=== PATIENT | male | born 1960 | race Caucasian/White ===

== ENCOUNTER 2020-05-31 09:50 | Emergency (ER) | payer BC ==
[2020-05-31] MEDS ORDERED: Bacitracin Oint 1 GM U/D Packet TOP ONE (11:23)
--- NOTE | 2020-05-31 11:34 | EDM.PDOC ---
ED HPI GENERAL MEDICAL PROBLEM - General Chief Complaint: Skin Complaint Stated Complaint: FISHOOK IN LEFT HAND Time Seen by Provider: 05/31/20 11:21 Source of Information: Reports: Patient, RN Notes Reviewed History Limitations: Reports: No Limitations - History of Present Illness INITIAL COMMENTS - FREE TEXT/NARRATIVE: 59-year-old gentleman presents emergency department a complaint of fishhook to his left thumb no functional complaints - Related Data Allergies Allergy/AdvReac Type Severity Reaction Status Date / Time No Known Allergies Allergy Verified 05/31/20 10:21 Home Meds: Home Meds Rosuvastatin Calcium 10 mg PO DAILY 05/31/20 [History] Past Medical History Cardiovascular History: Reports: High Cholesterol - Past Surgical History GI Surgical History: Reports: Other (See Below) Other GI Surgeries/Procedures: diverticulitis surgery Social & Family History - Tobacco Use Smoking Status *Q: Never Smoker - Alcohol Use Days Per Week of Alcohol Use: 7 Number of Drinks Per Day: 2 Total Drinks Per Week: 14 - Recreational Drug Use Recreational Drug Use: No ED ROS GENERAL - Review of Systems Review Of Systems: See Below Skin: Reports: Wound ED EXAM, SKIN/RASH Exam: See Below Text/Narrative:: Single hook embedded into the left thumb near the proximal phalangeal palmar surface radial pulse +2, ED SKIN PROCEDURES - Foreign Body Removal Indication:: Bovey left thumb Consent Obtained:: Patient Performing Doctor:: OfficerTu Anesthesia Type: Other (see below) (Digital block) Findings:: Bovey removal use the fisherman's technique Complications:: No Course - Vital Signs Last Recorded V/S: Last Vital Signs Temp 98 F 05/31/20 10:23 Pulse 69 05/31/20 10:23 Resp 12 05/31/20 10:23 BP 178/97 H 05/31/20 10:23 Pulse Ox 96 05/31/20 10:23 - Orders/Labs/Meds Meds: Medications Discontinued Medications Generic Name Dose Route Start Last Admin Trade Name Frekeren PRN Reason Stop Dose Admin Bacitracin 1 dose 05/31/20 11:23 05/31/20 11:26 Bacitracin Oint 1 Gm TOP 05/31/20 11:24 1 dose ONETIME ONE Administration Lidocaine HCl 5 ml 05/31/20 11:23 05/31/20 11:26 Xylocaine-Mpf 1% INJECT 05/31/20 11:24 5 ml ONETIME ONE Administration Departure - Departure Time of Disposition: 11:45 Disposition: Home, Self-Care 01 Condition: Fair Clinical Impression: Fish hook injury of finger Qualifiers: Encounter type: initial encounter Laterality: left Qualified Code(s): S69.92XA - Unspecified injury of left wrist, hand and finger(s), initial encounter - Discharge Information Referrals: PCP,None [Primary Care Provider] - Forms: ED Department Discharge Additional Instructions: Follow-up with primary care as needed Sepsis Event Note (ED) - Evaluation Sepsis Screening Result: No Definite Risk - Focused Exam Vital Signs: Vital Signs Temp Pulse Resp BP Pulse Ox 05/31/20 10:23 98 F 69 12 178/97 H 96 - Assessment/Plan Plan: Assessment Acuity = acute Site and laterality = fishhook left thumb Etiology = rapilla Manifestations = none Location of injury = Home Lab values = none Plan Follow-up primary care as needed This note was dictated using [employer] voice recognition software please call with any questions on syntax or grammar.
== END 2020-05-31 11:53 | disposition home or self-care (01) ==
LOC: JP.ED 09:50
DX: S60.352A Superficial foreign body of left thumb, initial encounter (principal); E78.00 Pure hypercholesterolemia, unspecified; Z79.899 Other long term (current) drug therapy; W45.8XXA Other foreign body or object entering through skin, initial encounter
CPT/HCPCS: 64450; 99282; J2001